=== PATIENT | female | born 1940 | race Caucasian/White ===

== ENCOUNTER 2017-05-18 08:56 | Outpatient (CLI) | payer OTHER | END 2017-05-18 08:59 | disposition home or self-care (01) | LOC: SONOGRAMA 08:56 | DX: E04.2 Nontoxic multinodular goiter (principal) ==

== ENCOUNTER 2022-04-21 12:30 | Outpatient (CLI) | payer OTHER | END 2022-04-21 12:33 | disposition home or self-care (01) | LOC: SONOGRAMA 12:30 | PROVIDERS: ATTEND Pathology Anatomic Pathology & Clinical Pathology | DX: D34 Benign neoplasm of thyroid gland (principal); E04.9 Nontoxic goiter, unspecified; E04.2 Nontoxic multinodular goiter ==